=== PATIENT | female | born 2005 | race Caucasian/White ===

== ENCOUNTER 2025-02-03 22:44 | Outpatient (CLI) | payer OTHER, SELFPAY ==
[2025-02-03 22:30] VITALS: BP 112/69; PULSE 77
[2025-02-03 22:45] VITALS: BP 119/65; PULSE 80
[2025-02-04 00:16] VITALS: BP 137/74; PULSE 76
[2025-02-04 00:19] LABS: Glucose Urine UA Negative (Normal); Nitrate Urine Negative (Negative); Specific Gravity, Urine 1.011 (1.005-1.030)
[2025-02-04 00:30] VITALS: BP 137/74; PULSE 76; O2SAT 100
[2025-02-04 00:35] LABS: UA Slide Review UA Slide Review Perf
== END 2025-02-04 00:35 | disposition home or self-care (01) ==
LOC: OPOB 22:51 → OBGYN 23:00
PROVIDERS: Obstetrics & Gynecology
DX: O26.899 Other specified pregnancy related conditions, unspecified trimester (principal); Z3A.00 Weeks of gestation of pregnancy not specified; R10.9 Unspecified abdominal pain
CPT/HCPCS: 59025; 81001; 99211